=== PATIENT | female | born 1995 | race Caucasian/White ===

== ENCOUNTER 2016-07-23 21:15 | Emergency (ER) | payer BC, OTHER ==
[~2016-07-23] VITALS: Ht 157.5 cm; Wt 61.4 kg
[~2016-07-23 21:15] MED LIST: IBUP-1277 PO; LEVOIUD INT UTER
[2016-07-23 21:24] VITALS: TEMP 36.9; Ht 157.5 cm; Wt 61.4 kg
[2016-07-23] MEDS ORDERED: AMOX875T PO (22:07)
[2016-07-23] MEDS ORDERED: PSEU60TA80 PO (22:11)
[2016-07-23] MEDS ORDERED: PSEU30TA20 PO (22:12)
[2016-07-23] MEDS ORDERED: AMOXICIL/CLAVU 875MG HOME PACK PO ONE (22:15)
[2016-07-23 22:51] VITALS: BP 113/70; PULSE 89; O2SAT 100
--- NOTE | 2016-07-24 02:57 | EMERGENCY ROOM VISIT NOTE ---
History First contact with patient: 21:50 Chief Complaint: ILLNESS Stated Complaint: THROAT SWELLING, EYE SWELLING,HEADACHE History of Present Illness The patient is a 20 year old female who presents to the Emergency Room with complaints of sinus congestion and headache symptoms for the past week. 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 She states that today when she woke up from sleep she had swelling of her right upper eyelid. Over the course of the day the swelling has significantly improved. The patient does have a history of some chronic sinus issues, and has not had relief with [id number] Mucinex and Sudafed. She has not had a significant fever. The patient is considered otherwise usually healthy and rates her discomfort a 5/10. Review of Systems More than 10 systems were reviewed and otherwise negative with the exception of history of present illness. Past Medical/Surgical History No chronic medical disease Family History Heart disease Hypertension Social History Smoking Status: Current Every Day Smoker Alcohol Use: occasionally Drug Use: none Housing Status: lives with family Occupation Status: employed Current/Historical Medications Scheduled Amoxicillin & Pot Clavulanate (Augmentin 875-125 mg), 1 TAB PO BID Scheduled PRN Ibuprofen (Advil), 600-800 MG PO BID PRN for Pain or Fever Pseudoephedrine (Sudafed), 30 MG PO TID PRN for Cough Pseudoephedrine-Guaifenesin (Mucinex D), 1 TAB PO HS PRN for CINGESTION Allergies Coded Allergies: No Known Allergies (Unverified , 11/06/13) Physical Exam Vital Signs Date Time Temp Pulse Resp B/P Pulse Ox O2 Delivery O2 Flow Rate FiO2 07/23/16 22:51 89 18 113/70 100 07/23/16 21:24 36.9 91 18 133/96 100 Room Air Pain Rating (0-10): 8.0 Physical Exam VITALS: Vitals are noted on the nurse's note and reviewed by myself. Vital signs stable. GENERAL: Well-developed, well-nourished, white female, who is in no acute distress and resting comfortably. Patient is cooperative with the examination. HEAD: Normocephalic atraumatic. Positive right maxillary and right frontal sinus tenderness on percussion EARS: External ear normal. External auditory canals clear, tympanic membranes pearly farnsworth without erythema or effusion bilaterally. EYES: Pupils equal round and reactive to light and accommodation. Conjunctivae without injection, sclerae without icterus. Extraocular movements intact. NOSE: Patent, turbinates without inflammation or discharge. MOUTH: Mucous membranes moist. Tonsils are not enlarged. Pharynx without erythema, blood, or exudate. Uvula midline. Airway patent. NECK: Supple without nuchal rigidity. No lymphadenopathy. No thyromegaly. Cervical spine is nontender. HEART: Regular rate and rhythm without murmurs gallops or rubs. LUNGS: Clear to auscultation bilaterally without wheezes, rales or rhonchi. No retractions or accessory muscle use. Medical Decision & Procedures Medications Administered Medications (Trade) Dose Ordered Sig/Geraldo Route Start Time Stop Time Status Last Admin Dose Admin Amoxicillin/ Clavulanate Potassium (Augmentin 875MG Home Pack) 1 homepack UD ONCE PO 07/23/16 22:15 07/23/16 22:16 DC 07/23/16 22:50 1 HOMEPACK ED Course Physical exam and history were performed. Nursing notes and EMR were reviewed. Patient appears to have sinus congestion and headache for the past week. On exam she does have sinus tenderness on percussion consistent with a right sided sinusitis. The patient does not have other significant findings on exam. I will provide her a course of Augmentin for her symptoms. She will be given a day off from work as she does work in a jail. The patient will need to follow with her primary care physician. She was otherwise invited back to the ER with any new, worsening, or concerning symptoms. The chart was completed utilizing [employer] Speech Voice Recognition Software. Grammatical errors, random word insertions, pronoun errors, and incomplete sentences are an occasional consequence of this system due to software limitations, ambient noise, and hardware issues. Any formal questions or concerns about the content, text, or information contained within the body of this dictation should be directly addressed to the provider for clarification. . Medical Decision Differential diagnosis: Etiologies such as viral syndrome, otitis, pharyngitis, pneumonia, influenza, meningitis, urinary tract infection, sepsis, bacteremia, as well as others were entertained. Impression Primary Impression: Acute sinusitis Departure Information Dispostion Home / Self-Care Condition GOOD Prescriptions Amoxicillin & Pot Clavulanate (Augmentin 875-125 mg) 1 Tab Tab 1 TAB PO BID for 9 Days, #18 TAB Prov: Salvador Avery PA-C 07/23/16 Forms HOME CARE DOCUMENTATION FORM, Work Instructions, Additional Instructions: Patient seen and evaluated today in the emergency department for medica care. Return to work on 07/25/2016. Please excuse. IMPORTANT VISIT INFORMATION Patient Instructions [facility] Additional Instructions You were seen and evaluated today on an emergency basis only. This is not a substitute for, or an effort to provide, complete comprehensive medical care. It is not possible to recognize and treat all injuries or illnesses in a single emergency department visit. For this reason it is recommended that you followup with your primary care physician's office next week with any ongoing or persistent issues. For baseline pain relief you may alternate ibuprofen and acetaminophen every 4 hours for pain control. Take 600 mg ibuprofen (Advil) and then 4 hours later take 1000 mg acetaminophen (Tylenol). Do not take more than 3000 mg acetaminophen in a single day. Amoxicillin Clavulanate (Augmentin) 875mg: Take one pill twice daily for 10 total days for your infection. All antibiotics can cause diarrhea. If this occurs and you feel worse or it does not resolve in 1-2 days follow up with your doctor or return to the Emergency Department as this could be signs of serious underlying problems. Any medication can cause an allergic reaction, stop the pills immediately and return to the ER for rash, hives, breathing difficulties, or swelling. You may use [id number] DayQuil, NyQuil, and Sudafed for additional relief of symptoms. You are welcome to return to the emergency department anytime with new, worsening, or concerning symptoms. Work Instructions Additional Work Instructions: Patient seen and evaluated today in the emergency department for medical care. Return to work on 07/25/2016. Please excuse.
== END 2016-07-23 22:51 | disposition home or self-care (01) ==
LOC: C.EDB 21:17 → C.EDC 22:51
DX: J01.90 Acute sinusitis, unspecified (principal); F17.200 Nicotine dependence, unspecified, uncomplicated; Z82.49 Family history of ischemic heart disease and other diseases of the circulatory system

== ENCOUNTER 2017-01-01 21:05 | Emergency (ER) | payer SELFPAY ==
[~2017-01-01] VITALS: Ht 157.5 cm; Wt 67.0 kg
[~2017-01-01 21:05] MED LIST changes: -LEVOIUD INT UTER; +PSEU30TA20 PO; +PSEU60TA80 PO
[2017-01-01 21:12] VITALS: BP 122/83; TEMP 36.7; Ht 157.5 cm; Wt 67.0 kg
[2017-01-01] MEDS ORDERED: HYDROCODONE/ACETAMOPHEN 5/325MG TAB PO STA (21:28)
[2017-01-01] MEDS ORDERED: DEXAMETHASONE SOD INJ 10 MG/ML VIAL IM ONE (21:30)
[2017-01-01] MEDS ORDERED: METH4PAK PO (21:46)
[2017-01-01] MEDS ORDERED: HYDR-5688 PO (21:59)
--- NOTE | 2017-01-01 22:11 | DIAGNOSTIC IMAGING REPORT ---
L-SPINE MIN 4 VIEWS ROUTINE CLINICAL HISTORY: 21 years-old Female presenting with low back pain radiating down the leg on the left. TECHNIQUE: Frontal, bilateral oblique, and lateral views of the lumbar spine as well as coned-down lateral view of the lumbosacral junction were obtained. COMPARISON: 01/16/2015. FINDINGS: Vertebral bodies maintain normal height and alignment. Intervertebral disc spaces maintained. No osseous neural foraminal narrowing. No radiographic evidence of acute fracture or subluxation. Nonobstructive bowel gas pattern with mild stool burden. Intrauterine device noted. IMPRESSION: No acute osseous injury of the lumbar spine. Electronically signed by: Ady Carvajal M.D. 01/01/2017 10:10 PM Dictated Date/Time: 01/01/2017 10:09 PM
--- NOTE | 2017-01-01 22:14 | EMERGENCY ROOM VISIT NOTE ---
ED Visit Note First contact with patient: 21:16 CHIEF COMPLAINT: Low back pain and left wrist and arm numbness HISTORY OF PRESENT ILLNESS: This 21-year-old female resents to ER with 2 complaints. The patient states that her first complaint is that she has had left hand numbness intermittently for the past one week. 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 She also states that she sleeps with her left hand under her left side of her head when she sleeps. She sleeps on her left side. The patient denies any neck pain. The patient denies any upper back pain. The patient is right-hand dominant. The patient is also complaining of low back pain. The patient states that approximately a year ago she started with knee pain. She went to see [facility] for her knees and had x-rays and MRIs and they were all negative. She then went to physical therapy and the physical therapist told her that he felt that her knee pain was coming from her back. She then started therapy for her back and has been doing quite well for 6 months. Then a week and a half ago [place] felt a "pop" in her lower back and states that her legs gave out due to the pain. The patient states since that time she has increased pain in the left lower back and down the left leg. The patient denies any numbness and tingling in the left leg. The patient denies any urinary symptoms or loss of bowel or bladder control. The patient has been taking ibuprofen without any relief. The patient states that currently she does not have any medical insurance. She is covered under her mother's insurance. Her mother works for [employer] and is laid off over the [employer] therefore does not have any medical coverage over the summer months. The patient is here because the pain became intolerable. REVIEW OF SYSTEMS: 6 system review was performed and was negative unless stated otherwise in history of present illness. PMH: The patient is healthy; prior back pain, wisdom teeth removal SOCIAL HISTORY: Patient lives with her family. The patient admits to tobacco use and occasional alcohol use. PHYSICAL EXAM: Vital Signs normal: Reviewed Nurse's notes and agree. GEN.: 21- year-old white female appears in no acute distress. MENTAL STATUS: Alert and oriented 3. LEFT WRIST: No gross bony deformity noted. No erythema or edema noted. Positive Phalen's positive Tinel's. Negative Anne's. Full range of motion of the left wrist. LUMBAR SPINE: Slight scoliosis noted. Patient is tender to palpation over the lower spinous processes. And in the paravertebral region on the left side at the same level. Right side is nontender. Limited range of motion in all directions secondary to pain.. Muscle strength is 5 out of 5 bilateral lower extremities and symmetrical. NEURO : Patient is able to heel and toe walk without difficulty. I lateral patellar and Achilles reflexes are 2+. Sensation is intact to pinprick bilateral lower extremities. Negative straight leg raise bilaterally. EMERGENCY DEPARTMENT COURSE: The patient was evaluated. The patient was given Decadron 10 mg IM, [place] 5/325 mg 2 tablets by mouth for pain. X-ray of the lumbar spine was ordered and interpreted by the radiologist and myself. DIAGNOSTICS:L-SPINE MIN 4 VIEWS ROUTINE CLINICAL HISTORY: 21 years-old Female presenting with low back pain radiating down the leg on the left. TECHNIQUE: Frontal, bilateral oblique, and lateral views of the lumbar spine as well as coned-down lateral view of the lumbosacral junction were obtained. COMPARISON: 01/16/2015. FINDINGS: Vertebral bodies maintain normal height and alignment. Intervertebral disc spaces maintained. No osseous neural foraminal narrowing. No radiographic evidence of acute fracture or subluxation. Nonobstructive bowel gas pattern with mild stool burden. Intrauterine device noted. IMPRESSION: No acute osseous injury of the lumbar spine. Electronically signed by: Ady Carvajal M.D. 01/01/2017 10:10 PM My interpretation reveals mild thoracolumbar scoliosis with straightening of lumbar lordosis. The patient was informed about my findings and the radiologist findings. The patient was just discharged to home in stable condition with her boyfriend driving. DIAGNOSIS: Lumbar strain DISCHARGE INSTRUCTIONS AND TREATMENT: Couple tunnel syndrome of left wrist: Wear the wrist splint until pain is tolerable without it. Ibuprofen 600 mg every 6 hours with food for pain. Ice the left wrist after repetitive motion. Wear the wrist splint at night. Back pain: Medrol dosepak as prescribed. Ibuprofen as above. Take [place] as needed for more severe pain. Do not drive while taking the [place]. Follow-up with your family doctor if symptoms persist or worsen for referral to spine orthopedic surgeon. Current/Historical Medications Scheduled Methylprednisolone (Medrol Dosepak), 0 PO DAILY Scheduled PRN Hydrocodone/Acetaminophen 5MG/325MG ([place] 5MG/325MG), 1-2 TABLET PO Q6 PRN for Pain Allergies Coded Allergies: No Known Allergies (Unverified , 01/01/17) Vital Signs Date Time Temp Pulse Resp B/P (MAP) Pulse Ox O2 Delivery O2 Flow Rate FiO2 01/01/17 21:12 36.7 81 18 122/83 100 Room Air Medications Administered Medications (Trade) Dose Ordered Sig/Geraldo Route Start Time Stop Time Status Last Admin Dose Admin Dexamethasone Sodium Phosphate (Decadron Inj) 10 mg NOW ONCE IM 01/01/17 21:30 01/01/17 21:31 DC 01/01/17 22:01 10 MG Acetaminophen/ Hydrocodone Bitart ([place] 5/325 Tab) 2 tab NOW STAT PO 01/01/17 21:28 01/01/17 21:30 DC 01/01/17 22:02 2 TAB Departure Information Prescriptions Hydrocodone/Acetaminophen 5MG/325MG ([place] 5MG/325MG) Tab 1-2 TABLET PO Q6 Y for Pain, #20 TAB For Initial Treatment Prov: Ashley Salazar PA-C 01/01/17 Methylprednisolone (MEDROL DOSEPAK) 4 Mg Clay 0 PO DAILY, #1 PKT Prov: Ashley Salazar PA-C 01/01/17 Referrals Charan Rivera DO (PCP) Patient Instructions [facility]
[2017-01-01 22:25] VITALS: PULSE 74; O2SAT 100
== END 2017-01-01 22:26 | disposition home or self-care (01) ==
LOC: C.EDB 21:06 → C.EDD 22:26
DX: G56.02 Carpal tunnel syndrome, left upper limb (principal); S39.012A Strain of muscle, fascia and tendon of lower back, initial encounter; X58.XXXA Exposure to other specified factors, initial encounter; Z72.0 Tobacco use

== ENCOUNTER → 2017-07-29 | Outpatient (CLI) | payer BC | END | disposition home or self-care (01) | LOC: C.PAPS 15:44 | PROVIDERS: ATTEND Obstetrics & Gynecology | DX: Z01.419 Encounter for gynecological examination (general) (routine) without abnormal findings (principal); R87.610 Atypical squamous cells of undetermined significance on cytologic smear of cervix (ASC-US); Z11.51 Encounter for screening for human papillomavirus (HPV); Z97.5 Presence of (intrauterine) contraceptive device ==

== ENCOUNTER → 2017-07-29 | Outpatient (CLI) | payer BC | END | disposition home or self-care (01) | LOC: C.LABSPEC 15:49 | PROVIDERS: ATTEND Obstetrics & Gynecology | DX: Z01.419 Encounter for gynecological examination (general) (routine) without abnormal findings (principal) ==

== ENCOUNTER 2020-08-24 01:31 | Inpatient (IN) ==
[2020-08-24] MEDS ORDERED: LACTATED RINGER'S 1,000 ML IV PRN (01:48)
[2020-08-24] MEDS ORDERED: OXYTOCIN 30 UNITS/500 ML BAG IV PRN ×2 (01:48→04:20)
--- NOTE | 2020-08-24 01:51 | History & Physical Report ---
Date of Service August 24, 2020 Assessment & Plan (1) SROM (spontaneous rupture of membranes): 24 y/o at 38 6/7 wga w/ SROM and labor VSS, BPs slightly elevated but pt in a lot of pain Fetus cat 1 Labor - s/p srom and jordy well, will augment PRN GBS neg Desires epidural Covid test ordered History of Present Illness Chief Complaint: SROM/labor Primary Care Provider: NO PCP 24 y/o at 38 6/7 wga w/ MARKEL 09/01 by [facility] tri w/ unk LMP presents after LOF began after feeling pop sensation and ctx increasing in frequency and intensity since then . +FM, denies VB PNI: Anxiety Past RECOVERY COORDINATOR Hx: G1 2013 at 38 wks, labor G2 current Menarche 14, irregular cycles Remote hx chlamydia, HPV 01/2020 cotest, hx LSIL Allergies Allergy/AdvReac Type Severity Reaction Status Date / Time No Known Drug Allergies Allergy Verified 08/18/20 11:36 Home Medications Medication Instructions Recorded Confirmed Type prenat.vits,darlene,[id number] 1 tab PO DAILY 05/04/20 08/18/20 History [ #2] Patient History Medical History Anxiety Genital warts Herpes zoster History of varicella LGSIL on Pap smear of cervix Surgical History H/O wisdom tooth extraction Family History Grandfather (Maternal) Diabetes Mother Hypertension Dyslipidemia Grandfather (Paternal) Heart disease Other Thyroid disease Social History Smoking Status: Current some day smoker Age Started Using Tobacco: 11; Age Quit Using Tobacco: 24; packs per day: 0.5; Cigarettes Per Day: 1/2 PPD; Hx Alcohol Use: No Hx Substance Use: No Preferred Language: Sami Communication Ability: Effective Visual Impairment: No Limitations Hearing Ability: Normal marital status: Single marital status details: Eduardo Sepulveda (31) [phone] Current Living Situation: Family Current Living Situation Comment: Lives with parents and child current occupational status: employed current occupation: student dental assistant to [employer] Feels Safe at Home: Yes Physical Activity Frequency: Does not Exercise Seatbelt Use: always Sunscreen Use: Yes Physical Exam Constitutional: WD/WN, vitals as above Respiratory: normal respiratory effort; no respiratory distress and no labored breathing Psychiatric: A+Ox3, euthymic affect Genitourinary: OB Exam Abdomen: + vertex (by suture) Manual OB Exam: + cervical dilation 5 cm, + cervical effacement 90%, + station -2 and + amniotic fluid (grossly ruptured) clear and nitrazine positive OB Exam Monitor Tracing : + external FHT monitor used, + external uterine monitor used ([place] q3min) and + category I (120/mod/+accel/-decel) [facility]) Vital Signs (Past 12 Hours) Vital Signs Pulse BP 08/24/20 01:46 101 H 127/98 08/24/20 01:39 102 H 135/100 Laboratory Results OB Labs: Blood Type O Positive 01/28/20 Antibody Screen NEGATIVE 01/28/20 Hemoglobin 12.7 g/dL (12.0-16.0) 06/14/20 Hematocrit 38.1 % (37-47) 06/14/20 Mean Corpuscular Volume 89.5 fL (80-100) 01/28/20 Platelet Count 217 K/uL (130-400) 01/28/20 Rubella IgG Antibody Immune (Immune) 01/28/20 Rapid Plasma Reagin Nonreactive (Nonreactive) 01/28/20 Hepatitis B Surface Antigen Neg (Neg) 01/28/20 HIV (1&2) Ab and P24 Ag, 4th Gener Neg (Neg) 01/28/20 Glucose 1 Hour 50 gm Load 113 mg/dl (70-130) 06/14/20 OB Optional Labs: Chlamydia trachomatis RNA NOT DETECTED (NOT DETECTED) 01/28/20 Neisseria gonorrhoeae RNA NOT DETECTED (NOT DETECTED) 01/28/20 Labs Reviewed: declines panorama, cf and sma declines quad gbs neg--akh Diagnostic Findings Ant plac Code Status & VTE Plan VTE Prophylaxis Plan VTE Prophylaxis will be ordered: Yes Coding Level of Care Code None Diagnoses SROM (spontaneous rupture of membranes)
[2020-08-24] MEDS ORDERED: fentaNYL citrate 100 MCG/2 ML VIAL ONE (02:07)
[2020-08-24] MEDS ORDERED: BUPIVACAINE 0.25% 30 ML VIAL ONE (02:07)
[2020-08-24] MEDS ORDERED: SODIUM CHLORIDE 0.9% INJ 10 ML VIAL ONE (02:07)
[2020-08-24] MEDS ORDERED: ePHEDrine sulfate 50 MG/ML AMP ONE (02:07)
[2020-08-24] MEDS ORDERED: fentaNYL 2MCG/ML ROPIVACAINE 1.25MG/ML 100 ML BAG EPI ONE (02:08)
[2020-08-24 02:09] LABS: Hematocrit (blood only) 37.8 % (37-47); Hemoglobin 13.3 g/dL (12.0-16.0); Mean Corpuscular Hemoglobin 31.4 pg (25-34); Mean Corpuscular Hgb Conc 35.2 g/dL (32-36); Mean Corpuscular Volume 89.4 fL (80-100); Platelet Count 282 K/uL (130-400); RDW Coefficient of Variation 12.7 % (11.5-14.5); RDW Standard Deviation 41.4 fL (36.4-46.3); Red Blood Count 4.23 M/uL (4.2-5.4); White Blood Count 15.71 K/uL (4.8-10.8)
[2020-08-24] MEDS ORDERED: NALOXONE HCL 1 MG in SODIUM CHLORIDE 0.9% 1000ML 1,000 ML IV PRN (02:20)
[2020-08-24] MEDS ORDERED: diphenhydrAMINE 50 MG/ML VIAL IV PRN (02:20)
[2020-08-24] MEDS ORDERED: ePHEDrine sulfate 50 MG/ML AMP IV PRN (02:20)
[2020-08-24] MEDS ORDERED: NALOXONE HCL 0.4 MG/1 ML VIAL/CARP IV PRN (02:20)
[2020-08-24] MEDS ORDERED: ONDANSETRON INJ 2 MG/ML 2 ML VIAL IV PRN (02:20)
[2020-08-24] MEDS ORDERED: fentaNYL 2MCG/ML ROPIVACAINE 1.25MG/ML 100 ML BAG EPI PRN (02:20)
--- NOTE | 2020-08-24 02:52 | Delivery Summary ---
Vaginal Delivery Summary Date of Service August 24, 2020 PREOPERATIVE DIAGNOSIS: 1. Single intrauterine at 38 6/7 wga 2. SROM 3. Labor POSTOPERATIVE DIAGNOSIS: 1. Single intrauterine at 38 6/7 wga 2. SROM 3. Labor 4. Delivered PROCEDURE: 1. Normal spontaneous vaginal delivery. SURGEON: Shanti Hernandez MD ANESTHESIA: Epidural. ESTIMATED BLOOD LOSS: 300 mL FLUIDS: Continuous LR. URINE OUTPUT: None. COMPLICATIONS: None. CONDITION: Stable. INDICATIONS: 24 y/o at 38 6/7 wga presented to labor and delivery after spontaneous rupture of membranes and in active labor. She progressed unaugmented to complete and desired to push. FINDINGS: A viable male infant with Apgars of 8 and 9 at 1 and 5 minutes respectively. SPECIMEN: Cord blood OPERATIVE REPORT: The patient progressed to 10 cm, 100% effaced and +2 station, pushed over intact perineum with anesthesia to deliver a viable male , Apgars as above. Head of delivered in WILDER position. Nuchal cord was present and delivered through. Body and shoulders were delivered without difficulty. was delivered to maternal abdomen and nursing staff. Delayed cord clamping was performed for 60 seconds. Cord was clamped and cut. Cord blood was obtained. Placenta delivered spontaneously intact with 3-vessel cord. IV oxytocin and fundal massage were given for excellent hemostasis. Vagina, cervix, perineum, and placenta were inspected. No lacerations were noted. Sponge and needle counts correct x2. No sponges were left behind. Mother and stable in immediate period. Vaginal Delivery Summary [facility] Vaginal Delivery Charge Vaginal Delivery Codes: 27027 global code for the antepartum, delivery, and post- Delivery Type Details: [facility]
[2020-08-24] MEDS ORDERED: LACTATED RINGER'S 1,000 ML IV SCH (04:20)
[2020-08-24] MEDS ORDERED: ACETAMINOPHEN 325 MG TAB PO PRN (04:20)
[2020-08-24] MEDS ORDERED: BENZOCAINE 20% AER SPR 82.5 GM CAN EXT PRN (04:20)
[2020-08-24] MEDS ORDERED: HYDROCORTISONE ACETATE 25 MG SUPP PR PRN (04:20)
[2020-08-24] MEDS ORDERED: DIPHTHERIA/TETANUS/PERTUSSIS 0.5 ML SYR/VIAL IM ONE (04:20)
[2020-08-24] MEDS ORDERED: SUPERCREAM 0.870% 15 GM JAR EXT PRN (04:20)
[2020-08-24] MEDS ORDERED: bisacodyL 10 MG SUPP PR PRN (04:20)
[2020-08-24] MEDS: PRENATAL VITAMIN 1 TAB PO SCH (08:59)
[2020-08-24] MEDS: IBUPROFEN 600 MG TAB PO PRN ×2 (08:59→18:52)
[2020-08-24] MEDS: DOCUSATE SODIUM 100 MG CAP PO SCH ×2 (08:59→20:26)
--- NOTE | 2020-08-25 05:55 | Obstetrical Progress Note ---
Date of Service <Chencho Ann MD - Last Filed: 08/25/20 07:07> August 25, 2020 Assessment & Plan <Chencho Ann MD - Last Filed: 08/25/20 07:07> (1) Encounter for supervision of normal in multigravida, antepartum: - PNL: Rh pos, RI, GBS neg, COVID neg - Feels well today. Eating well, voiding well, ambulating well - Pain well controlled with ibuprofen 600mg Q4H PRN - Routine care -- OOB, ambulation, diet progression as tolerated - After discharge will have 6 week follow-up with Dr. Hernandez (2) SROM (spontaneous rupture of membranes): Subjective <Chencho Ann MD - Last Filed: 08/25/20 07:07> Velvet is a 24 y/o female who is PPD #1 following at 38+ weeks. She reports feeling well overall this morning. Moderate abdominal cramping and 5/10 pain well managed on analgesics. Voiding well. Tolerating meals overnight without difficulty. Patient has been able to ambulate some. Has been passing gas and had bowel movement. Has persistent lochia with some improvement this morning. Currently bottle feeding. Review of Systems Denies fever or chills. Denies shortness of breath or cough. Denies chest pain. Denies breast pain. Denies dysuria. Denies leg pain or leg swelling. Denies headache or changes in vision. Physical Exam <Chencho Ann MD - Last Filed: 08/25/20 07:07> General: Alert, oriented. No acute distress. Cardiac: Regular rate and rhythm. No murmurs. Respiratory: Clear to auscultation bilaterally a/p, no wheezes/rales/rhonchi. No increased work of breathing. Symmetrical chest rise. No respiratory distress. Abdomen: Soft, nontender, nondistended. Bowel sounds present. Uterus: Uterine fundus firm, palpable 1 cm below umbilicus. Lower Extremities: No lower extremity edema or swelling. No deep calf pain. Lev's negative bilaterally. Results & Data ([facility]) <Chencho Ann MD - Last Filed: 08/25/20 07:07> Vital Signs (Past 12 Hours) Vital Signs Temp Pulse Resp BP Pulse Ox 08/24/20 23:35 36.6 C 91 H 16 100/65 96 08/24/20 19:00 36.5 C 71 20 138/87 100 <Antony Swann MD - Last Filed: 08/25/20 07:54> Co-Signing Physician Notes Patient seen and evaluated and agree with the above findings and plan. Stable for discharge Resident Activity Tracking <Chencho Ann MD - Last Filed: 08/25/20 07:07> Resident Involvement: Resident Care Provided Care Provided: OB Delivery
[2020-08-25] MEDS: IBUPROFEN 600 MG TAB PO PRN (08:39)
[2020-08-25] MEDS: PRENATAL VITAMIN 1 TAB PO SCH (08:40)
[2020-08-25] MEDS: DOCUSATE SODIUM 100 MG CAP PO SCH (08:40)
[2020-08-25] MEDS ORDERED: bisacodyL 5 MG TABEC PO SCH (20:00)
== END 2020-08-25 11:05 | disposition home or self-care (01) | DRG 807 ==
LOC: OPB 01:31 → 4S1 01:36 → 4S2 05:20

== ENCOUNTER 2022-05-13 17:50 | Observation (INO) ==
[2022-05-13 19:03] LABS: Basophils # (auto) 0.03 K/uL (0-0.2); Basophils % (auto) 0.5 %; Eosinophils % (auto) 1.6 %; Hematocrit (blood only) 41.2 % (34.1-44.9); Hemoglobin 13.8 g/dl (12.0-16.0); Immature Granulocytes # (auto) 0.01 K/uL (0.00-0.02); Immature Granulocytes % (auto) 0.2 %; Lymphocytes # (auto) 2.34 K/uL (1.2-3.4); Lymphocytes % (auto) 36.9 %; Mean Corpuscular Hemoglobin 30.3 pg (25.0-34.0); Mean Corpuscular Hgb Conc 33.5 g/dL (32.0-36.0); Mean Corpuscular Volume 90.4 fL (80.0-100.0); Mean Platelet Volume 10.8 fL (9.4-12.3); Monocytes # (auto) 0.38 K/uL (0.24-0.82); Neutrophils # (auto) 3.49 K/uL (1.4-6.5); Neutrophils % (auto) 54.8 %; Platelet Count 237 K/uL (130-400); RDW Coefficient of Variation 11.7 % (11.5-14.5); RDW Standard Deviation 38.6 fL (36.4-46.3); Red Blood Count 4.56 M/uL (3.93-5.22); White Blood Count 6.35 K/ul (4.8-10.8)
[2022-05-13 19:16] LABS: Appearance Urine Clear (Clear); Bilirubin Urine Negative (Negative); Blood Urine Negative (Negative); Color Urine Yellow; Glucose Urine UA Negative (Negative); Ketones Urine Negative (Negative); Leukocyte Esterase Urine Negative (Negative); Nitrite Urine Negative (Negative); Protein Urine Negative (Negative); Specific Gravity Urine 1.014 (1.000-1.030); Urobilinogen Urine Negative (Negative)
[2022-05-13 19:22] LABS: Albumin Globulin Ratio 1.6 (0.9-2); Albumin Level 4.6 gm/dl (3.4-5.0); BUN Creatinine Ratio 12.7 (10-20); Bilirubin,Total 0.4 mg/dl (0.2-1.0); Calcium 9.9 mg/dl (8.5-10.1); Est GFR (African American) 141.5 ml/min; Est GFR (Non-African American) 122.1 ml/min; Globulin 2.9 gm/dl (2.5-4.0); Potassium 3.8 mmol/L (3.5-5.1); Total Protein 7.5 gm/dl (6.0-8.3)
[2022-05-13] MEDS ORDERED: SODIUM CHLORIDE 0.9% 1000ML 1,000 ML IV ONE (19:59)
[2022-05-13] MEDS ORDERED: ACETAMINOPHEN 1,000 MG/100 ML VIAL IV STA (20:00)
[2022-05-13] MEDS ORDERED: KETOROLAC TROMETHAMINE 15 MG/ML VIAL IV STA (20:00)
[2022-05-13] MEDS ORDERED: OPTIRAY 350 100ml IV ONE (20:35)
[2022-05-13 21:26] LABS: Pregnancy Test, Serum Negative (Negative)
[2022-05-13] MEDS ORDERED: cefOXitin 2,000 MG/60 ML BAG IV STA (22:19)
--- NOTE | 2022-05-13 23:11 | History & Physical Report ---
Date of Service May 13, 2022 Assessment & Plan (1) Appendicitis, acute: Plan: IVF IV abx to OR for lap appendectomy Present on Admission?: Yes History of Present Illness Primary Care Provider: Amarjit Grande MD This is a 26YO female with acute abdominal pain mainly right sided. The pain worsens with movement. She has some associated nausea but hasn't vomited. She has no fevers or chills. She denies dysuria. A CT scan shows acute appendicitis. Allergies Allergy/AdvReac Type Severity Reaction Status Date / Time No Known Drug Allergies Allergy Unknown Verified 05/13/22 23:00 Home Medications Medication Instructions Recorded Confirmed Type ibuprofen 200 mg tablet 600 mg PO Q8 PRN Pain 05/13/22 05/13/22 History ondansetron HCl 4 mg tablet 0 mg PO Q6H PRN Nausea 05/13/22 05/13/22 History Past Med/Surg History Medical History (Updated 05/13/22 @ 23:11 by Francisco Javier Stephens MD) Anxiety Appendicitis, acute Genital warts Herpes zoster History of varicella LGSIL on Pap smear of cervix Surgical History H/O wisdom tooth extraction Family History Grandfather (Maternal) Diabetes Mother Hypertension Dyslipidemia Grandfather (Paternal) Heart disease Other Thyroid disease Social History Smoking Status: Never smoker Age Started Using Tobacco: 11; Age Quit Using Tobacco: 24; packs per day: 0.5; Cigarettes Per Day: 1; Second Hand Exposure: Yes; Hx Alcohol Use: No Hx Substance Use: No Preferred Language: Finnish Communication Ability: Effective Visual Impairment: No Limitations Hearing Ability: Normal Six Sigma Black Trainer Required: No Beliefs That Will Affect Care: None marital status: Single marital status details: Eduardo Sepulveda (31) [phone] Current Living Situation: Significant Other Current Living Situation Comment: FOElisa and his son; patient's daughter live with them current occupational status: employed current occupation: student dental medical clerical assistant Feels Safe at Home: Yes Physical Activity Frequency: Does not Exercise Seatbelt Use: always Sunscreen Use: Yes Assistive Devices: None Review of Systems no fever, no chills and no anorexia no problem reported no problem reported no cough and no dyspnea no chest pain + abdominal pain and + nausea; no vomiting and no change in bowel habits no dysuria no back pain no rash and no lesions no localized weakness and no generalized weakness no behavioral changes no easy bleeding and no easy bruising Physical Exam Constitutional: WD/WN, vitals as above Eyes: PERRL, conjunctivae normal, anicteric sclerae ENMT: external ear and nose normal, oropharynx normal Neck: normal visual inspection Respiratory: normal respiratory effort, lungs clear to auscultation Cardiovascular: RRR, no murmur, no edema Gastrointestinal (Abdomen): Inspection/Auscultation: abdomen normal to inspection and normal bowel sounds; abdomen not distended Percussion/Palpation: + abdomen tender and abdomen soft; no guarding, abdomen not rigid and no hernia Musculoskeletal: Head/Neck/Chest: normocephalic and head atraumatic Skin: no rashes, warm and dry Results & Data ([facility]) Vital Signs (Past 12 Hours) Vital Signs Temp Pulse Pulse Resp BP BP Pulse Ox 05/13/22 22:00 92 H 18 111/72 99 05/13/22 21:07 81 18 99/58 L 98 05/13/22 17:58 36.8 C 100 H 18 126/90 100 O2 Del Method 05/13/22 22:00 05/13/22 21:07 05/13/22 17:58 Room Air Diagnostic Findings CT scan with acute appendicitis.
[2022-05-13] MEDS ORDERED: PROMETHAZINE HCL 6.25 MG in SODIUM CHLORIDE 0.9% 50 ML IV PRN (23:18)
[2022-05-13] MEDS ORDERED: ATROPINE SULFATE 0.1 MG/ML 10ML SYR IV PRN (23:18)
[2022-05-13] MEDS ORDERED: ePHEDrine sulfate 50 MG/ML AMP IV PRN (23:18)
[2022-05-13] MEDS ORDERED: fentaNYL citrate 100 MCG/2 ML VIAL IV PRN (23:18)
[2022-05-13] MEDS ORDERED: ONDANSETRON INJ 2 MG/ML 2 ML VIAL IV PRN (23:18)
[2022-05-13] MEDS ORDERED: HYDROmorphone INJ 1 MG/ML SYRINGE IV PRN (23:18)
[2022-05-13] MEDS ORDERED: PROPOFOL IV EMULSION 10 MG/ML 20 ML VIAL IV ONE (23:20)
[2022-05-13] MEDS ORDERED: ONDANSETRON INJ 2 MG/ML 2 ML VIAL ONE (23:20)
[2022-05-13] MEDS ORDERED: diphenhydrAMINE 50 MG/ML VIAL ONE (23:20)
[2022-05-13] MEDS ORDERED: NEOSTIGMINE METHYLSULFATE 1 MG/ML 10ML VIAL ONE (23:20)
[2022-05-13] MEDS ORDERED: ROCURONIUM BROMIDE 10 MG/ML 5 ML VIAL IV ONE (23:20)
[2022-05-13] MEDS ORDERED: SUCCINYLCHOLINE CHLORIDE 20 MG/ML 10 ML VIAL IV ONE (23:20)
[2022-05-13] MEDS ORDERED: DEXAMETHASONE SOD INJ 4 MG/ML VIAL ONE (23:20)
[2022-05-13] MEDS ORDERED: GLYCOPYRROLATE 0.2 MG/ML VIAL ONE (23:20)
[2022-05-13] MEDS ORDERED: fentaNYL citrate 100 MCG/2 ML VIAL ONE (23:20)
[2022-05-13] MEDS ORDERED: MIDAZOLAM HCL 1 MG/ML 2ML VIAL ONE (23:20)
--- NOTE | 2022-05-13 23:30 | Anesthesiology Consultation ---
Date of Service May 13, 2022 Assessment & Plan (1) Encounter for pre-operative examination: Chart Review Chart Review: Acceptable Risk for Surgery and Patient NOT seen in Pre Admission Testing Consults Requested none History Surgery Operation Date: 05/14/22 00:00 Proposed Procedures p Laparoscopic Appendectomy - Francisco Javier Stephens MD Height/Weight Height: 5 ft 2 in Weight: 63 kg Allergies Allergy/AdvReac Type Severity Reaction Status Date / Time No Known Drug Allergies Allergy Unknown Verified 05/13/22 23:00 Medications Home Medications Medication Instructions Recorded Confirmed Last Taken ibuprofen 200 mg tablet 600 mg PO Q8 PRN Pain 05/13/22 05/13/22 Unknown ondansetron HCl 4 mg tablet 0 mg PO Q6H PRN Nausea 05/13/22 05/13/22 Unknown Past Medical History Medical History Anxiety Appendicitis, acute Genital warts Herpes zoster History of varicella LGSIL on Pap smear of cervix Past Family History Family History Grandfather (Maternal) Diabetes Mother Hypertension Dyslipidemia Grandfather (Paternal) Heart disease Other Thyroid disease Past Surgical History Surgical History H/O wisdom tooth extraction Social History Smoking Status: Never smoker tobacco type: cigarettes Smoking cigarettes per day: 1 Hx Alcohol Use: No Hx Substance Use: No substance use type: does not use Physical Exam Vital Signs Last Vital Signs Temp 36.8 C 05/13/22 17:58 Pulse 92 H 05/13/22 22:00 Resp 18 05/13/22 22:00 BP 111/72 05/13/22 22:00 Pulse Ox 99 05/13/22 22:00 O2 Del Method 05/13/22 17:58 Testing Laboratory Results 05/13/22 18:40 05/13/22 18:40 Urine Color Yellow 05/13/22 18:52 Urine Appearance Clear (Clear) 05/13/22 18:52 Urine pH 6.0 (4.5-7.5) 05/13/22 18:52 Ur Specific [place] 1.014 (1.000-1.030) 05/13/22 18:52 Urine Protein Negative (Negative) 05/13/22 18:52 Urine Glucose (UA) Negative (Negative) 05/13/22 18:52 Urine Ketones Negative (Negative) 05/13/22 18:52 Urine Nitrite Negative (Negative) 05/13/22 18:52 Ur Leukocyte Esterase Negative (Negative) 05/13/22 18:52
[2022-05-13] MEDS ORDERED: BUPIVACAINE/EPINEPHRINE 0.5% MPF 1:200,000 30 ML VIAL ONE (23:31)
--- NOTE | 2022-05-14 00:32 | Post Operative Brief Note ---
Immediate Post Op Note v1 Date of Surgery May 14, 2022 Pre & Post Diagnosis Operation Date: 05/14/22 00:00 Pre-Op Diagnosis: acute appendicitis Post-Op Diagnosis: acute appendicitis I identified the patient and participated in the time-out.: Yes Procedure Operation Date: 05/14/22 00:00 Actual Procedures p Laparoscopic Appendectomy(Not Applicable) - Francisco Javier Stephens MD Surgeon Francisco Javier Stephens MD Senior Electrical Estimator none Estimated Blood Loss 15 Findings Consistent with Post-Op Diagnosis
--- NOTE | 2022-05-14 01:04 | Anesthesiology Progress Note ---
Date of Service May 14, 2022 Anesthesia Post Procedure Vital Signs Vital Signs: Temp Pulse Pulse Resp BP BP Pulse Ox 05/14/22 01:00 36.5 C 74 116/78 96 05/14/22 00:50 36.5 C 98 H 18 125/86 100 05/13/22 23:40 05/13/22 22:00 92 H 18 111/72 99 05/13/22 21:07 81 18 99/58 L 98 05/13/22 17:58 36.8 C 100 H 18 126/90 100 O2 Del Method O2 Flow Rate 05/14/22 01:00 Room Air 05/14/22 00:50 Oxymask 5 05/13/22 23:40 Room Air 05/13/22 22:00 05/13/22 21:07 05/13/22 17:58 Room Air Pain Intensity Right Upper Abdomen: Pain Intensity: 8 Transfer of Care Handoff Completed per policy Notes Mental Status: alert / awake / arousable and participated in evaluation Patient Amnestic to Procedure: Yes Nausea / Vomiting: adequately controlled Pain: adequately controlled Airway Patency, RR, SpO2: stable & adequate BP & HR: stable & adequate Hydration State: stable & adequate Anesthetic Complications: no major complications apparent and Pt Satisfied with anesthetic care
--- NOTE | 2022-05-14 01:12 | Operative Report (OR) ---
DATE OF SURGERY: 05/14/2022. PREOPERATIVE DIAGNOSIS: Acute appendicitis. POSTOPERATIVE DIAGNOSIS: Acute appendicitis. PROCEDURES PERFORMED: Laparoscopic appendectomy. SURGEON: Francisco Javier Stephens MD. SOLID FIBER PASTER OPERATOR: None. ANESTHESIA: General endotracheal with 0.5% Marcaine with epinephrine local. ESTIMATED BLOOD LOSS: 5 mL. COMPLICATIONS: None. DRAINS: None. SPECIMEN: Appendix sent for pathologic evaluation. HISTORY: This is a 26-year-old female who was admitted through the ED with abdominal pain. She underwent a workup, which showed an acute appendicitis by CT scan. I talked to her in detail and we recommended laparoscopic appendectomy with the possible risks of an open procedure, postoperative abscess, bleeding and wound problems. She understands and wishes to proceed. DESCRIPTION OF PROCEDURE: The patient was taken to the OR and underwent excellent general endotracheal anesthesia. Her abdomen was prepped and draped in normal sterile fashion. A transverse supraumbilical incision was made and with tension on the abdominal wall, Veress needle was entered in her peritoneal cavity without difficulty. Good pneumoperitoneum was then achieved to 15 mmHg pressure. A visualized 11 port was then placed. Good diagnostic lap was performed. The appendix was identified, was inflamed within the right lower quadrant. Five suprapubic port was then placed along with a 5 right upper quadrant and a 12 left lower quadrant port. Once the ports were all placed, the patient was placed in head down and rolled to the left. With a Dagoberto clamp, using the right upper quadrant port, the cecum was grasped. The tip of the appendix was grasped with a Concord with the suprapubic port. A Harmonic scalpel was then used to take down the mesoappendix with minimal bleeding. Once this was taken to the base of the appendix, an Endo-SHANA abernathy 60 load was then used to transect the appendix at its base. The appendix was obviously inflamed. Endobag was brought in through the left lower quadrant port and the appendix was placed within the bag and brought out and sent for pathologic evaluation. The port was placed. The abdomen was irrigated out and suctioned clear. The staple line was intact and showed no sign of bleeding. There were no other abnormalities noted. Ports were then removed. The pneumoperitoneum was decompressed. A 0 Vicryl was used to close the fascial defect and the 11 and 12 port. Interrupted Vicryl was used to close the skin. Marcaine 0.5% with epinephrine used as a local field block. Steri-Strips and benzoin were used for incision. Sterile dressings were applied. The patient tolerated the procedure without complications and was sent to the postoperative recovery for a period of observation and then sent to the floor for her care. Job ID: [id number] MTDD
[2022-05-14] MEDS ORDERED: ACETAMINOPHEN 325 MG TAB PO PRN (01:37)
[2022-05-14] MEDS ORDERED: MoRPHine SULFATE 4 MG/ML 1 ML CARP\\VIAL IV PRN (01:37)
[2022-05-14] MEDS ORDERED: MoRPHine SULFATE 2 MG/ML CARP IV PRN (01:37)
[2022-05-14] MEDS ORDERED: IBUPROFEN 200 MG TAB PO PRN (01:37)
[2022-05-14] MEDS ORDERED: oxyCODONE/ACETAMINOPHEN 5mg/325mg TAB PO PRN ×2 (01:37)
[2022-05-14] MEDS ORDERED: ONDANSETRON INJ 2 MG/ML 2 ML VIAL IV PRN (01:37)
[2022-05-14] MEDS: LACTATED RINGER'S 1,000 ML IV SCH ×2 (02:07→10:17)
--- NOTE | 2022-05-14 04:19 | Emergency Department Note ---
Impression & Plan Appendicitis, acute, Right lower quadrant abdominal pain ED Provider Note NAME: ANMOL ROBLEDO AGE: 26 SEX: F ARRIVES VIA: Walk-In INFORMANT: Patient ED PROVIDER(S): Jose Khanna MD CHIEF COMPLAINT: Abdominal pain PLAN: Disposition: Admit MEDICAL DECISION MAKING: The patient is a pleasant 26-year-old woman with a past medical history of anxiety who presents to the emergency department accompanied by her for evaluation of abdominal pain and decreased appetite that is evolved over the past week. She further adds that the pain radiates into her pelvis and she feels bloated with cramping and also has pain going to her right armpit. She reports she was giving it time to resolve but it has only worsened. She admits she has a history of anxiety and has had chest pain at times but has never had symptoms such as this. She reports decreased appetite with intermittent nausea but denies vomiting. She denies any fevers, urinary symptoms. She denies diarrhea or constipation. She reports she just completed her menstrual cycle several days ago and does not typical feel this way around her cycle. Of note, the patient did arrive to emergency department during time of high volume, acuity and prolonged emergency department waiting times. Critical pathways initiated from triage. On arrival the patient is well-appearing in no distress, afebrile with normal vital signs. She appears clinically dry. Her abdomen is soft but with moderate tenderness in the right lower quadrant over McBurney's point. WBC, H/H and platelets within normal limits. Chemistry without metabolic acidosis. Electrolytes and FTs without significant abnormality. Lipase within normal limits. hCG was negative. UA without evidence of infection. COVID-19 RNA, DAVIDA test was negative. Given the patient's point tenderness on exam we did agree to proceed with CT imaging. Per preliminary stat read report findings are consistent with acute appendicitis with 1.2 cm appendix with periappendiceal inflammation. Upon reevaluation the patient reported no significant change in her symptoms. Cefoxitin ordered. Case was discussed with general surgery on-call, Dr. Stephens, who evaluated the patient and admitted for further management/surgery. Triage Nursing notes reviewed and agree them. Prior medical records reviewed Vital Signs: reviewed Differential diagnosis: Appendicitis, ovarian cyst, ovarian torsion, ectopic , TOA, PID, infections, diverticulitis, UTI, obstruction, mesenteric ischemia, aortic pathology, inflammatory bowel disease, renal colic, PUD, pancreatitis, biliary pathology, hernia, volvulus, constipation, as well as other pathologies. ER treatment provided: See below. Diagnostics interpreted by me: Cardiac Monitoring: An order for continuous cardiac monitoring was placed and demonstrates normal sinus rhythm, 75 bpm, no ectopy. Laboratory studies: See below Imaging studies: See below Consultation(s): General surgery, Dr. Stephens HPI: The patient is a pleasant 26-year-old woman with a past medical history of anxiety who presents to the emergency department accompanied by her for evaluation of abdominal pain and decreased appetite that is evolved over the past week. She further adds that the pain radiates into her pelvis and she feels bloated with cramping and also has pain going to her right armpit. She reports she was giving it time to resolve but it has only worsened. She admits she has a history of anxiety and has had chest pain at times but has never had symptoms such as this. She reports decreased appetite with intermittent nausea but denies vomiting. She denies any fevers, urinary symptoms. She denies diarrhea or constipation. She reports she just completed her menstrual cycle several days ago and does not typical feel this way around her cycle. Of note, the patient did arrive to emergency department during time of high volume, acuity and prolonged emergency department waiting times. Critical pathways initiated from triage. ROS: See above HPI for pertinent positives & negatives. A total of 10 systems reviewed and were otherwise negative. VITALS:See Below PHYSICAL EXAMINATION: GENERAL: Awake, alert, well-appearing, in no distress HENT: Normocephalic, atraumatic. Oropharynx with dry mucous membranes and otherwise unremarkable. EYES: Normal conjunctiva. Sclera non-icteric. NECK: Supple. No nuchal rigidity. FROM. No JVD. RESPIRATORY: Clear to auscultation. CARDIAC: Regular rate, normal rhythm. Extremities warm and well perfused. Pulses equal. ABDOMEN: Soft, non-distended. Mild-moderate RLQ tenderness to palpation. No rebound or guarding. No masses. RECTAL: Deferred. MUSCULOSKELETAL: Chest examination reveals no tenderness. The back is symmetrical on inspection without obvious abnormality. There is no CVA tenderness to palpation. No joint edema. LOWER EXTREMITIES: Calves are equal size bilaterally and non-tender. No edema. N o discoloration. NEURO: Normal sensorium. No sensory or motor deficits noted. SKIN: No rash or jaundice noted. Jose Khanna MD Past Med/Surg History Medical History Anxiety Appendicitis, acute Genital warts Herpes zoster History of varicella LGSIL on Pap smear of cervix Surgical History H/O wisdom tooth extraction Family History Grandfather (Maternal) Diabetes Mother Hypertension Dyslipidemia Grandfather (Paternal) Heart disease Other Thyroid disease Social History Smoking Status: Current every day smoker Age Started Using Tobacco: 11; Age Quit Using Tobacco: 24; packs per day: 0.5; Cigarettes Per Day: 1; Second Hand Exposure: Yes; Do You Dip or Chew Tobacco: No; Tobacco Cessation Education Requested by Patient: No Hx Alcohol Use: Yes Alcohol type: other Hx Substance Use: Yes Last Used Substance: Unknown Preferred Language: Kyrgyz Communication Ability: Effective Visual Impairment: No Limitations Hearing Ability: Normal Body Shop Technician Required: No Beliefs That Will Affect Care: None marital status: Single marital status details: Eduardo Sepulveda (31) [phone] Current Living Situation: Spouse and Family Current Living Situation Comment: JOSÉ and his son; patient's daughter live with them current occupational status: employed current occupation: student dental clinical services assistant Other Information That Helps Us Care for You: No Feels Safe at Home: Yes Safety Concerns: Feels Safe At This Time Physical Activity Frequency: Does not Exercise Seatbelt Use: always Sunscreen Use: Yes Assistive Devices: None Allergies Allergies Allergy/AdvReac Type Severity Reaction Status Date / Time No Known Drug Allergies Allergy Unknown Verified 05/13/22 23:00 Home Meds Home Medications Medication Instructions Recorded Confirmed ibuprofen 200 mg tablet 600 mg PO Q8 PRN Pain 05/13/22 05/13/22 ondansetron HCl 4 mg tablet 0 mg PO Q6H PRN Nausea 05/13/22 05/13/22 Results & Data (ED) Vital Signs Vital Signs - 24 hr 05/13/22 17:58 05/13/22 21:07 05/13/22 22:00 Temperature 36.8 C Temperature Source Temporal Artery Scan Pulse Rate 100 H Pulse Rate [Finger] 81 92 H Respiratory Rate 18 18 18 Respiratory Effort / Characteristics Non-Labored Respiratory Depth Normal Normal Blood Pressure 126/90 Blood Pressure [Right Arm] 99/58 L 111/72 Blood Pressure Mean 102 Blood Pressure Mean [Right Arm] 71 85 Pulse Oximetry 100 98 99 Oxygen Delivery Method Room Air Sepsis Recent Fever Within 48 Hours No Sepsis New/Unexplained Change in Mental Status No Sepsis Action Taken by Nursing No Action Required 05/13/22 23:40 Temperature Temperature Source Pulse Rate Pulse Rate [Finger] Respiratory Rate Respiratory Effort / Characteristics Respiratory Depth Blood Pressure Blood Pressure [Right Arm] Blood Pressure Mean Blood Pressure Mean [Right Arm] Pulse Oximetry Oxygen Delivery Method Room Air Sepsis Recent Fever Within 48 Hours Sepsis New/Unexplained Change in Mental Status Sepsis Action Taken by Nursing Laboratory Data Attestation: I reviewed the patient's lab results. Result diagrams: 05/13/22 18:40 05/13/22 18:40 Lab Results 05/13/22 05/13/22 05/13/22 Range/Units 18:40 18:40 18:46 WBC 6.35 (4.8-10.8) K/ul RBC 4.56 (3.93-5.22) M/uL Hgb 13.8 (12.0-16.0) g/dl Hct 41.2 (34.1-44.9) % MCV 90.4 (80.0-100.0) fL MCH 30.3 (25.0-34.0) pg MCHC 33.5 (32.0-36.0) g/dL RDW Std Deviation 38.6 (36.4-46.3) fL RDW Coeff of Nicolas 11.7 (11.5-14.5) % Plt Count 237 (130-400) K/uL MPV 10.8 (9.4-12.3) fL Immature Gran % (Auto) 0.2 % Neut % (Auto) 54.8 % Lymph % (Auto) 36.9 % Gilchrist % (Auto) 6.0 % Eos % (Auto) 1.6 % Baso % (Auto) 0.5 % Neut # (Auto) 3.49 (1.4-6.5) K/uL Lymph # (Auto) 2.34 (1.2-3.4) K/uL Gilchrist # (Auto) 0.38 (0.24-0.82) K/uL Eos # (Auto) 0.10 (0-0.50) K/uL Baso # (Auto) 0.03 (0-0.2) K/uL Immature Gran # (Auto) 0.01 (0.00-0.02) K/uL Sodium 137 (136-145) mmol/L Potassium 3.8 (3.5-5.1) mmol/L Chloride 102 (98-107) mmol/L Carbon Dioxide 32 (21-32) mmol/L Anion Gap 3 (3-11) BUN 8 (6-23) mg/dl Creatinine 0.63 (0.6-1.2) mg/dl Est Cr Clr Drug Dosing 116.0 ml/min Est GFR ( Amer) 141.5 ml/min Est GFR (Non-Af Amer) 122.1 ml/min BUN/Creatinine Ratio 12.7 (10-20) Glucose 94 (70-99(Fasting)) mg/dl Calcium 9.9 (8.5-10.1) mg/dl Total Bilirubin 0.4 (0.2-1.0) mg/dl AST 26 (13-39) U/L ALT 32 (7-52) U/L Alkaline Phosphatase 74 (34-104) U/L Total Protein 7.5 (6.0-8.3) gm/dl Albumin 4.6 (3.4-5.0) gm/dl Globulin 2.9 (2.5-4.0) gm/dl Albumin/Globulin Ratio 1.6 (0.9-2) Lipase 6 L (11-82) U/L HCG, Qual Negative (Negative) Urine Color Urine Appearance (Clear) Urine pH (4.5-7.5) Ur Specific [place] (1.000-1.030) Urine Protein (Negative) Urine Glucose (UA) (Negative) Urine Ketones (Negative) Urine Blood (Negative) Urine Nitrite (Negative) Urine Bilirubin (Negative) Urine Urobilinogen (Negative) Ur Leukocyte Esterase (Negative) SARS-CoV-2, RNA, NAAT (NEGATIVE) 05/13/22 05/13/22 Range/Units 18:52 22:34 WBC (4.8-10.8) K/ul RBC (3.93-5.22) M/uL Hgb (12.0-16.0) g/dl Hct (34.1-44.9) % MCV (80.0-100.0) fL MCH (25.0-34.0) pg MCHC (32.0-36.0) g/dL RDW Std Deviation (36.4-46.3) fL RDW Coeff of Nicolas (11.5-14.5) % Plt Count (130-400) K/uL MPV (9.4-12.3) fL Immature Gran % (Auto) % Neut % (Auto) % Lymph % (Auto) % [place] % (Auto) % Eos % (Auto) % Baso % (Auto) % Neut # (Auto) (1.4-6.5) K/uL Lymph # (Auto) (1.2-3.4) K/uL [place] # (Auto) (0.24-0.82) K/uL Eos # (Auto) (0-0.50) K/uL Baso # (Auto) (0-0.2) K/uL Immature Gran # (Auto) (0.00-0.02) K/uL Sodium (136-145) mmol/L Potassium (3.5-5.1) mmol/L Chloride (98-107) mmol/L Carbon Dioxide (21-32) mmol/L Anion Gap (3-11) BUN (6-23) mg/dl Creatinine (0.6-1.2) mg/dl Est Cr Clr Drug Dosing ml/min Est GFR ( Amer) ml/min Est GFR (Non-Af Amer) ml/min BUN/Creatinine Ratio (10-20) Glucose (70-99(Fasting)) mg/dl Calcium (8.5-10.1) mg/dl Total Bilirubin (0.2-1.0) mg/dl AST (13-39) U/L ALT (7-52) U/L Alkaline Phosphatase (34-104) U/L Total Protein (6.0-8.3) gm/dl Albumin (3.4-5.0) gm/dl Globulin (2.5-4.0) gm/dl Albumin/Globulin Ratio (0.9-2) Lipase (11-82) U/L HCG, Qual (Negative) Urine Color Yellow Urine Appearance Clear (Clear) Urine pH 6.0 (4.5-7.5) Ur Specific [place] 1.014 (1.000-1.030) Urine Protein Negative (Negative) Urine Glucose (UA) Negative (Negative) Urine Ketones Negative (Negative) Urine Blood Negative (Negative) Urine Nitrite Negative (Negative) Urine Bilirubin Negative (Negative) Urine Urobilinogen Negative (Negative) Ur Leukocyte Esterase Negative (Negative) SARS-CoV-2, RNA, NAAT NEGATIVE (NEGATIVE) Administered Medications Acetaminophen (Acetaminophen 325 Mg Tab) 650 mg PO Q6H PRN PRN Reason: Pain & Pre PT Stop: 06/13/22 01:36 Last Admin: 05/14/22 02:10 Dose: 650 mg Documented By: JYOTHI Lactated Ringer's (Lr) 1,000 mls @ 125 mls/hr IV .Q8H RUIZ Stop: 06/12/22 22:29 Last Admin: 05/14/22 02:07 Dose: 125 mls/hr Documented By: JYOTHI Discontinued Medications Bupivacaine HCl/Epinephrine Bitart (Bupivacaine/Epinephrine 0.5% Mpf 1:200,000 30 Ml Vial) Confirm Administered Dose 30 ml .ROUTE .STK-MED ONE Stop: 05/13/22 23:32 Last Admin: 05/14/22 01:58 Dose: Not Given Documented By: JYOTHI Sodium Chloride (Nss 1000ml) 1,000 mls @ 999 mls/hr IV .Q1H1M ONE Stop: 05/13/22 20:59 Last Infusion: 05/13/22 22:08 Dose: 0 mls/hr Documented By: Admin: 05/13/22 20:16 Dose: 999 mls/hr Documented By: ABBY Acetaminophen (Ofirmev) 1,000 mg in 100 mls @ 400 mls/hr IV NOW STA Stop: 05/13/22 20:14 Last Infusion: 05/13/22 22:08 Dose: 0 mls/hr Documented By: Admin: 05/13/22 20:16 Dose: 400 mls/hr Documented By: ABBY Cefoxitin Sodium (Mefoxin) 2,000 mg in 60 mls @ 100 mls/hr IV NOW STA Stop: 05/13/22 22:54 Last Infusion: 05/13/22 23:15 Dose: 0 mls/hr Documented By: Admin: 05/13/22 22:38 Dose: 100 mls/hr Documented By: ABBY Ioversol (Optiray 350 100ml) 89 ml IV ONCE ONE Stop: 05/13/22 20:36 Last Admin: 05/13/22 20:35 Dose: 89 ml Documented By: LIDIA Ketorolac Tromethamine (Ketorolac Tromethamine 15 Mg/Ml Vial) 15 mg IV NOW STA Stop: 05/13/22 20:01 Last Admin: 05/13/22 20:16 Dose: 15 mg Documented By: ABBY Imaging Data Radiologist's Impression: STATRAD Preliminary Findings Only See Final Report For Complete Findings ADDENDUM - Added by Ronald Baxter MD on 05/13/2022 10:16 PM (-08:00) Addendum: The appendix is best visualized on image 61 of series 2 immediately deep and medial to the right external iliac vein. The appendix measures up to 1.2 cm with small periappendiceal inflammatory changes. No appendicolith is seen. No focal fluid collection or locules of extra luminal air are present to suggest perforation. CT ABDOMEN & PELVIS With Contrast: Findings are compatible with acute appendicitis without evidence for perforation or abscess. There is cholelithiasis. Radiologist: Ronald Baxter MD Study ready at 20:48 and initial results transmitted at 22:03 Discharge Plan Visit Data Chief Complaint: Abdominal Pain Stated Complaint: ABDOMINAL PAIN ED Provider: Jose Khanna Discharge Problem: Appendicitis, acute, Right lower quadrant abdominal pain Patient Disposition: Admitted As Inpatient Discharge Instructions Interventions: ED Discharge Assessment Last Done: 05/13/22 23:40
[2022-05-14] MEDS ORDERED: cefOXitin 2,000 MG in DEXTROSE 5% 50 ML IV SCH (06:00)
--- NOTE | 2022-05-14 07:21 | CT Scan Report ---
CT abd pelvis IV con only CLINICAL HISTORY: RLQ pain TECHNIQUE: Helical axial images of the abdomen and pelvis were obtained and displayed. Automated dose lowering techniques and/or adjustment according to patient size were utilized for this exam. This e xam was performed with intravenous contrast. CT DOSE: 274.02 mGy.cm COMPARISON: None available at the time of this dictation. FINDINGS: Lower chest: No acute abnormality. Liver: Unremarkable. No focal lesions are seen. Gallbladder and biliary tree: Cholelithiasis is seen without evidence of cholecystitis. No intra- or extrahepatic biliary ductal dilation. Pancreas: Unremarkable, no focal lesions. Spleen: Unremarkable. Adrenals: Unremarkable. Kidneys and ureters: Unremarkable. Bladder: Unremarkable. Reproductive organs: Unremarkable. Bowel: The appendix is dilated measuring up to 12 mm at the tip, an appendicolith is seen and there i s mild surrounding fat stranding. Lymph nodes Retroperitoneal: Unremarkable. Pelvic: Unremarkable. Mesenteric: Unremarkable. Peritoneum: Normal. Vessels: Unremarkable. Abdominal wall: Unremarkable. Bones: Unremarkable. IMPRESSION: Findings compatible with acute appendicitis. No evidence of rupture or abscess formation. ACT 112: Negative or not required by law. Electronically signed by: Tremaine Guzman M.D. 05/14/2022 7:19 AM
--- NOTE | 2022-05-14 12:35 | Discharge Summary ---
Date of Service May 14, 2022 Admission HPI Per Admitting Provider This is a 26YO female with acute abdominal pain mainly right sided. The pain worsens with movement. She has some associated nausea but hasn't vomited. She has no fevers or chills. She denies dysuria. A CT scan shows acute appendicitis. Principal Diagnosis Acute appendicitis Discharge Exam Constitutional WD/WN, vitals as above no acute distress and not ill appearing Neck normal visual inspection and trachea midline Respiratory normal respiratory effort; no respiratory distress Gastrointestinal (Abdomen) Inspection/Auscultation: abdomen normal to inspection and + abdominal surgical incision (Covered with clean dry dressings); abdomen not distended Percussion/Palpation: + abdomen tender and abdomen soft; no guarding and abdomen not rigid Skin no rashes, warm and dry Psychiatric A+Ox3, euthymic affect Discharge Data Allergies Allergy/AdvReac Type Severity Reaction Status Date / Time No Known Drug Allergies Allergy Unknown Verified 05/13/22 23:00 Consultations 05/13/22 22:28 ED Decision to Admit Stat Procedures Performed Operation Date: 05/14/22 00:00 Actual Procedures p Laparoscopic Appendectomy(Not Applicable) - Francisco Javier Stephens MD Ordered Studies 05/13/22 19:59 CT abd pelvis IV con only Urgent Hospital Course (1) Appendicitis, acute: Patient was taken to the operating room for laparoscopic appendectomy possible open by Dr. Stephens. Patient was found to have acute appendicitis without perforation. Patient tolerated procedure well and was transferred to recovery and then to medical/surgical floor for postoperative care. Her diet was advanced as tolerated. Activity as tolerated. IV fluids and IV pain medication with p.o. Percocet as needed for pain. Patient was evaluated on postop day #0 and tolerating clear liquids, pain management with p.o. Percocet, urinating without difficulty and ambulating to the bathroom. She was ready for discharge. Patient was discharged home in stable condition and discharge instructions reviewed she will follow-up in the surgery office in 1 week Total Time Total Time Spent Total Time Spent (In Minutes): 30 minutes Total Time Includes: Examination of the Patient, Discharge Planning and Medication Reconciliation Discharge Plan Discharge Items Patient Disposition: Home - Self-Care Reason For Visit: APPENDICITIS Discharge Diagnosis: acute appendicitis Activity: Per Instructions section Non-emergency contact: Primary Care Provider Call non-emergency contact if: you have any medication questions, your pain is not controlled, your pain is worsening, your pain is unusual for you, your pain is concerning for you, you have a fever, your temperature is above 101, your wound has increased redness, your wound has increased drainage and your wound pain has increased Follow-up/Referrals: Adele Botello PA-C [Physician Senior Policy Associate] - 05/22/22 3:30 pm (please arrive 15 min. early) Amarjit Grande MD [Primary Care Provider] - Diet: Regular Addtl Attending Provider Instructions: Post-Surgical ~Discharge Instructions Activity Recommendations: - lifting limitation: (20 pounds for 4 weeks), - exercise/sex/sports limit: (nonstrenuous for 2 weeks), - driving or machine use limit: (none for 1 week or until pain free and no longer taking narcotic pain medication), - Shower/bathe limit: (may shower beginning tomorrow) Diet: - Resume previous diet SPECIAL CARE INSTRUCTIONS: - May shower tomorrow morning, remove outer dressings and let water run over area and pat dry. - Leave steri strips on for one week and then remove. - Call the surgeon's office with any questions or concerns - - (ex. temperature higher than 101 degrees F, excessive bleeding or pain). MEDICATIONS: - Resume previous medications unless instructed otherwise by your surgeon. - May alternate extra strength Tylenol and Ibuprofen as needed for mild to moderate pain -650 mg Tylenol every 6 hours as needed - Ibuprofen 600 mg every 6 hours as needed (take with food) - Percocet 1 every 6 hours, as needed for moderate to severe pain - May take daily stool softener (Colace) while taking narcotic pain medication to prevent constipation or straining. Drink plenty of water daily. FOLLOW UP VISIT: - If not already scheduled, please call the office to schedule a two week follow-up appointment. Office number Pending Studies at Discharge: Yes (appendix pathology, will be reviewed at follow-up visit) Stand-Alone Forms: My [employer], Smoking Cessation Medications and DC Order Prescriptions: New oxycodone-acetaminophen 5-325 mg tablet 1 tab PO Q6H PRN (Reason: pain) Qty: 12 0RF Continued ondansetron HCl 4 mg Tablet 0 mg PO Q6H PRN (Reason: Nausea) ibuprofen 200 mg Tablet 600 mg PO Q8 PRN (Reason: Pain) Discharge Orders: Discharge Order (Routine); Ordered 05/14/22 Ordered By: Adele Koch/Other Patient Handouts: Treating Constipation, After an Appendectomy Admission Data Admit Date/Time: 05/14/22 00:36 Attending Provider: Francisco Javier Stephens Admit Provider: Francisco Javier Stephens Primary Care Provider: Amarjit Grande Other Providers: Francisco Javier Stephens Other Interventions: Discharge Summary Assessment (RN) Last Done: 05/14/22 12:48
== END 2022-05-14 13:20 | disposition home or self-care (01) ==
LOC: ED 17:50 → OR 23:40 → 3N 23:40